=== PATIENT | male | born 1950 | race Caucasian/White ===

== ENCOUNTER 2022-10-13 13:46 | Emergency (ER) | payer OTHER ==
--- OUTSIDE RECORDS SUMMARY | 2022-10-13 13:52 | XMS REPORT | Continuity of Care Document ---
:1950 Author Organization [facility] t Address [address] [place] [address] Dr. Fisher [address] [place] [id number] Care Team Providers Name Role Phone Jacek Moffett Attending Clinician Unavailable ROSEANNE Attending Clinician Unavailable Pinky Attending Clinician Unavailable ROSEANNE Admitting Clinician Unavailable Pinky Admitting Clinician Unavailable Payers Payer Name Policy Type Policy Number Effective Date Expiration Date Georges davenport [facility] [id number] 2021 00:00:00 [employer] (MEDICARE [id number] REPLACEMENT/ADVANTA GE - PPO) [employer] (PPO) [id number] Problems Condition Condition Condition Status Onset Resolution Last Treating Co mments Source Name Details Category Date Date Treatment Clinician Date 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 -16 Communi 00:00: ty 00 [facility] Hyperchole Hyperchole Problem Active 2020-0 S [facility]y sterolemia sterolemia 16 Co mmuni 00:00: ty 00 [facility] Bilateral Bilateral Problem Active 2020-0 Swe finn tinnitus Tinnitus 16 Commun i 00:00: ty 00 [facility] Hypertensi Hypertensi Problem Active 2020-0 S weeny ve heart ve Heart 16 Commun i disease Disease 00:00: ty without without 00 Hospita congestive Congestive l heart Heart Clinics failure Failure Mitral Mitral Problem Active 2020-0 [facility] valve Valve 16 Communi prolapse Prolapse 00:00: ty 00 Hospita l Clinics 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: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 Complex 00 Hospita l Clinics Nasal Nasal Problem Active 2020-0 [facility] infection Infection 7-16 Comm uni 00:00: ty 00 Hospita l Clinics Umbilical Umbilical Problem Active 2020-0 [facility] hernia Hernia -16 Communi 00:00: ty 00 [facility] Primary Primary Problem Active [facility] erectile Erectile 7-16 Commun i dysfunctio Dysfunctio 00:00: ty n n 00 [facility] History of History of Problem Active S weeny actinic Actinic 7-16 Communi keratosis Keratosis 00:00: ty 00 [facility] Lower Lower Problem Active [facility] urinary Urinary 7-16 Communi tract Tract 00:00: ty symptoms Symptoms 00 Hospit a due to Due to l benign Benign Clinics prostatic Prostatic hypertroph Hypertroph y y Cyst Cyst Problem Active [facility] 4-16 Communi 00:00: ty 00 [facility] Hypertensi Hypertensi Problem Active S weeny ve ve 4-14 Communi disorder Disorder 00:00: ty 00 [facility] Allergies, Adverse Reactions, Alerts Allergy Allergy Status Severity Reaction(s) Onset Inactive Treating Comm ents Source Name Type Date Date Clinician Meloxica Allergy Active [facility] m to Communi substanc ty e [facility] Nitrogly Allergy Active Moderate Dizziness Sw eeny cerin to to severe Communi substanc ty e [facility] Social History Smoking Status Start Date Stop Date Source Never Smoker [facility] Medications Ordered Filled Start Stop Current Ordering Indication Dosage Frequency Signature Comments Components Source Medication Medication Date Date Medication? Clinician (SIG) Name Name A/B/C/D-E A/B/C/D-E No A/B/C/D-E [facility] Vitamins Vitamins Vitamins Com nj ty [facility] amlodipine amlodipine No amlodipine [facility] 5 5 5 Communi mg-olmesart mg-olmesart mg-olmesar ty an 40 mg an 40 mg [place] 40 mg Ho spita tablet tablet tablet l Clinics mupirocin 2 mupirocin 2 No mupirocin [facility] % topical % topical 2 % Commu ni ointment ointment topical ty APPLY A APPLY A ointment Hospi ta SMALL SMALL APPLY A l AMOUNT TO AMOUNT TO SMALL Clin ics THE THE AMOUNT TO AFFECTED AFFECTED THE AREA BY AREA BY AFFECTED TOPICAL TOPICAL AREA BY ROUTE 3 ROUTE 3 TOPICAL TIMES PER TIMES PER ROUTE 3 DAY DAY TIMES PER DAY A/B/C/D-E A/B/C/D-E No A/B/C/D-E [facility] Vitamins Vitamins Vitamins Com nj [facility] amlodipine amlodipine No amlodipine [facility] 5 5 5 Communi mg-olmesart mg-olmesart mg-olmesar ty an 20 mg an 20 mg [place] 20 mg [facility]ita tablet 1 tablet 1 tablet 1 l tablet qDay tablet qDay tablet Clinics qDay mupirocin 2 mupirocin 2 No mupirocin [facility] % topical % topical 2 % Commu ni ointment ointment topical ty APPLY A APPLY A ointment Hospi ta SMALL SMALL APPLY A l AMOUNT TO AMOUNT TO SMALL Clin ics THE THE AMOUNT TO AFFECTED AFFECTED THE AREA BY AREA BY AFFECTED TOPICAL TOPICAL AREA BY ROUTE 3 ROUTE 3 TOPICAL TIMES PER TIMES PER ROUTE 3 DAY DAY TIMES PER DAY A/B/C/D-E A/B/C/D-E No A/B/C/D-E [facility] Vitamins Vitamins Vitamins Com [facility] amlodipine amlodipine No amlodipine [facility] 5 5 5 Communi mg-olmesart mg-olmesart mg-olmesar ty an 20 mg an 20 mg [place] 20 mg Ho spita tablet TAKE tablet TAKE tablet l 1 TABLET BY 1 TABLET BY TAKE 1 Clinics MOUTH EVERY MOUTH EVERY TABLET BY DAY DAY MOUTH EVERY DAY mupirocin 2 mupirocin 2 No mupirocin [facility] % topical % topical 2 % Commu ni ointment ointment topical ty APPLY A APPLY A ointment Hospi ta SMALL SMALL APPLY A l AMOUNT TO AMOUNT TO SMALL Clin ics THE THE AMOUNT TO AFFECTED AFFECTED THE AREA BY AREA BY AFFECTED TOPICAL TOPICAL AREA BY ROUTE 3 ROUTE 3 TOPICAL TIMES PER TIMES PER ROUTE 3 DAY DAY TIMES PER DAY A/B/C/D-E A/B/C/D-E No A/B/C/D-E [facility] Vitamins Vitamins Vitamins Com [facility] amlodipine amlodipine No amlodipine [facility] 5 5 5 Communi mg-olmesart mg-olmesart mg-olmesar ty an 20 mg an 20 mg [place] 20 mg [facility] spita tablet TAKE tablet TAKE tablet l 1 TABLET BY 1 TABLET BY TAKE 1 Clinics MOUTH EVERY MOUTH EVERY TABLET BY DAY DAY MOUTH EVERY DAY mupirocin 2 mupirocin 2 No mupirocin [facility] % topical % topical 2 % Commu ni ointment ointment topical ty APPLY A APPLY A ointment Hospi ta SMALL SMALL APPLY A l AMOUNT TO AMOUNT TO SMALL Clin ics THE THE AMOUNT TO AFFECTED AFFECTED THE AREA BY AREA BY AFFECTED TOPICAL TOPICAL AREA BY ROUTE 3 ROUTE 3 TOPICAL TIMES PER TIMES PER ROUTE 3 DAY DAY TIMES PER DAY A/B/C/D-E A/B/C/D-E No A/B/C/D-E [facility] Vitamins Vitamins Vitamins Com nj ty [facility] amlodipine amlodipine No amlodipine [facility] 5 5 5 Communi mg-olmesart mg-olmesart mg-olmesar ty an 20 mg an 20 mg [place] 20 mg [facility] tablet TAKE tablet TAKE tablet l 1 TABLET BY 1 TABLET BY TAKE 1 Clinics MOUTH EVERY MOUTH EVERY TABLET BY DAY DAY MOUTH EVERY DAY flaxseed flaxseed No flaxseed Swe finn daily daily daily Communi ty [facility] fluticasone fluticasone No fluticason [facility] propionate propionate e Com nj 50 50 propionate ty mcg/actuati mcg/actuati 50 H ospita on nasal on nasal mcg/actuat l spray,suspe spray,suspe ion nasal Clinics nsion nsion spray,susp INSTILL 1 INSTILL 1 ension SPRAY IN SPRAY IN INSTILL 1 EACH EACH SPRAY IN NOSTRIL NOSTRIL EACH ONCE A DAY ONCE A DAY NOSTRIL ONCE A DAY mupirocin 2 mupirocin 2 No mupirocin [facility] % topical % topical 2 % Commu ni ointment ointment topical ty APPLY A APPLY A ointment Hospi ta SMALL SMALL APPLY A l AMOUNT TO AMOUNT TO SMALL Clin ics THE THE AMOUNT TO AFFECTED AFFECTED THE AREA BY AREA BY AFFECTED TOPICAL TOPICAL AREA BY ROUTE 3 ROUTE 3 TOPICAL TIMES PER TIMES PER ROUTE 3 DAY DAY TIMES PER DAY A/B/C/D-E A/B/C/D-E No A/B/C/D-E [facility] Vitamins Vitamins Vitamins Com nj ty [facility] amlodipine amlodipine No amlodipine [facility] 5 5 5 Communi mg-olmesart mg-[place]mesart mg-olmesar ty an 20 mg an 20 mg [place] 20 mg [facility] spita tablet TAKE tablet TAKE tablet l 1 TABLET BY 1 TABLET BY TAKE 1 Clinics MOUTH EVERY MOUTH EVERY TABLET BY DAY DAY MOUTH EVERY DAY Fluzone Fluzone No Fluzone [facility] High-Dose High-Dose High-Dose Communi ty (PF) 180 (PF) 180 (PF) 180 Hos rebecca mcg/0.5 mL mcg/0.5 mL mcg/0.5 mL l intramuscul intramuscul intramuscu Clinics ar syringe ar syringe lar syringe mupirocin 2 mupirocin 2 No mupirocin [facility] % topical % topical 2 % Commu ni ointment ointment topical ty APPLY A APPLY A ointment Hospi ta SMALL SMALL APPLY A l AMOUNT TO AMOUNT TO SMALL Clin ics THE THE AMOUNT TO AFFECTED AFFECTED THE AREA BY AREA BY AFFECTED TOPICAL TOPICAL AREA BY ROUTE 3 ROUTE 3 TOPICAL TIMES PER TIMES PER ROUTE 3 DAY DAY TIMES PER DAY sildenafil sildenafil No 1 Q1D sildenafil [facility] 100 mg 100 mg 100 mg Communi tablet Take tablet Take tablet ty 1 tablet 1 tablet Take 1 Hospi ta every day every day tablet l by oral by oral every day Clin ics route. route. by oral route. tadalafil tadalafil No tadalafil [facility] 10 mg 10 mg 10 mg Communi tablet TAKE tablet TAKE tablet ty 1 TABLET BY 1 [facility]TH EVERY TABLET BY l DAY DAY MOUTH Clinics EVERY DAY A/B/C/D-E A/B/C/D-E No A/B/C/D-E [facility] Vitamins Vitamins Vitamins Com nj ty Hospita l Clinics amlodipine amlodipine No amlodipine [facility] 5 5 5 Communi mg-[place]mesart mg-olmesart mg-olmesar ty an 20 mg an 20 mg [place] 20 mg [facility] spita tablet TAKE tablet TAKE tablet l 1 TABLET BY 1 TABLET BY TAKE 1 [facility] MOUTH EVERY MOUTH EVERY TABLET BY DAY DAY MOUTH EVERY DAY fluticasone fluticasone No 1spray( Q1D fluticason [facility] propionate propionate s) e Com nj 50 50 propionate ty mcg/actuati mcg/actuati 50 H ospita on nasal on nasal mcg/actuat l spray,suspe spray,suspe ion nasal Clinics nsion [place] nsion [place] spray,susp 1 spray 1 spray ension every day every day [place] 1 by by spray intranasal intranasal every day route. route. by intranasal route. Fluzone Fluzone No Fluzone [facility] High-Dose High-Dose High-Dose Communi ty (PF) 180 (PF) 180 (PF) 180 Hos rebecca mcg/0.5 mL mcg/0.5 mL mcg/0.5 mL l intramuscul intramuscul intramuscu Clinics ar syringe ar syringe lar syringe hydroxychlo hydroxychlo No hydroxychl [facility] roquine 200 roquine 200 oroquine Communi mg tablet mg tablet 200 mg ty TAKE 1 TAKE 1 tablet Hospita TABLET BY TABLET BY TAKE 1 l MOUTH ONCE MOUTH ONCE TABLET BY Clinics DAILY FOR 5 DAILY FOR 5 MOUTH ONCE DAYS THEN DAYS THEN DAILY FOR TAKE 1 TAKE 1 5 DAYS TABLET BY TABLET BY THEN TAKE MOUTH MOUTH 1 TABLET WEEKLY WEEKLY BY MOUTH THEREAFTER THEREAFTER WEEKLY THEREAFTER mupirocin 2 mupirocin 2 No mupirocin [facility] % topical % topical 2 % Commu ni ointment ointment topical ty APPLY A APPLY A ointment Hospi ta SMALL SMALL APPLY A l AMOUNT TO AMOUNT TO SMALL Clin ics THE THE AMOUNT TO AFFECTED AFFECTED THE AREA BY AREA BY AFFECTED TOPICAL TOPICAL AREA BY ROUTE 3 ROUTE 3 TOPICAL TIMES PER TIMES PER ROUTE 3 DAY DAY TIMES PER DAY sildenafil sildenafil No sildenafil [facility] 100 mg 100 mg 100 mg Communi tablet TAKE tablet TAKE tablet ty 1 TABLET BY 1 TABLET BY TAKE 1 Hospita MOUTH EVERY MOUTH EVERY TABLET BY l DAY DAY MOUTH Clinics EVERY DAY zinc zinc No zinc [facility] sulfate 50 sulfate 50 sulfate 50 Communi mg zinc mg zinc mg zinc ty (220 mg) (220 mg) (220 mg) Hos rebecca capsule capsule capsule l TAKE ONE TAKE ONE TAKE ONE Cli nics CAPSULE BY CAPSULE BY CAPSULE BY MOUTH ONCE MOUTH ONCE MOUTH ONCE A DAY A DAY A DAY Immunizations Ordered Immunization Filled Immunization Date Status Commen ts Source Name Name influenza, influenza, 2019-08-02 Completed [facility] Communi ty injectable, injectable, 00:00:00 Hospital Cli [facility]ics quadrivalent quadrivalent influenza, influenza, 2019-08-02 Completed [facility] Communi ty injectable, injectable, 00:00:00 [facility] Cli nics quadrivalent quadrivalent influenza, influenza, 2019-08-02 Completed [facility] Communi ty injectable, injectable, 00:00:00 Hospital Cli nics quadrivalent quadrivalent influenza, influenza, 2019-08-02 Completed [facility] Communi ty injectable, injectable, 00:00:00 Hospital Cli nics quadrivalent quadrivalent influenza, influenza, 2019-08-02 Completed [facility] Communi ty injectable, injectable, 00:00:00 Hospital Cli nics quadrivalent quadrivalent influenza, influenza, 2019-08-02 Completed [facility] Communi ty injectable, injectable, 00:00:00 Hospital Cli nics quadrivalent quadrivalent influenza, influenza, 2019-08-02 Completed [facility] Communi ty injectable, injectable, 00:00:00 Hospital Cli nics quadrivalent quadrivalent Vital Signs Vital Name Observation Time Observation Value Comments Source BP Diastolic 2022-06-24 00:00:00 82 mm[Hg] [facility] Height 2022-06-24 00:00:00 70 [in_i] [facility] BMI (Body Mass 2022-06-24 00:00:00 23.1 kg/m2 [facility]) [facility] BP Systolic 2022-06-24 00:00:00 136 mm[Hg] [facility] Body Weight 2022-06-24 00:00:00 2576 [oz_av] [facility] BP Diastolic 2022-03-27 00:00:00 84 mm[Hg] [facility] Height 2022-03-27 00:00:00 70 [in_i] [facility] s BMI (Body Mass 2022-03-27 00:00:00 23.7 kg/m2 [facility]) [facility] BP Systolic 2022-03-27 00:00:00 144 mm[Hg] [facility] Body Weight 2022-03-27 00:00:00 2640 [oz_av] [facility] BP Diastolic 2022-01-09 00:00:00 80 mm[Hg] [facility] Height 2022-01-09 00:00:00 70 [in_i] [facility] BMI (Body Mass 2022-01-09 00:00:00 24 kg/m2 [facility] BP Systolic 2022-01-09 00:00:00 120 mm[Hg] [facility] Body Weight 2022-01-09 00:00:00 2680 [oz_av] [facility] BP Diastolic 2021-12-24 00:00:00 70 mm[Hg] [facility] Height 2021-12-24 00:00:00 70 [in_i] [facility] BP Systolic 2021-12-24 00:00:00 142 mm[Hg] [facility] BP Diastolic 2021-06-20 00:00:00 70 mm[Hg] [facility] Height 2021-06-20 00:00:00 70 [in_i] [facility] BMI (Body Mass 2021-06-20 00:00:00 23.6 kg/m2 [facility] BP Systolic 2021-06-20 00:00:00 122 mm[Hg] [facility] Body Weight 2021-06-20 00:00:00 2632 [oz_av] [facility] BP Diastolic 2021-05-09 00:00:00 72 mm[Hg] [facility] Height 2021-05-09 00:00:00 70 [in_i] [facility] BMI (Body Mass 2021-05-09 00:00:00 23 kg/m2 [facility] BP Systolic 2021-05-09 00:00:00 118 mm[Hg] [facility] Body Weight 2021-05-09 00:00:00 2560 [oz_av] [facility] Procedures Procedure Date / Time Performed Performing Clinician Daniel e Osteoplasty of Frontal [facility] Sinus [facility] Vasectomy [facility] Inject Trigger [facility] Finger/thumb [facility] Release of Trigger Count includes the [facility] Sinus Surgery [facility] Hernia Repair [facility] Plan of Care Planned Activity Planned Date Details Comments Source Diagnostic Test 2021-05-09 testosterone, [facility] Comm unity Pending 00:00:00 total, serum Hospital Clinic s [code = testosterone, total, serum] Diagnostic Test 2021-05-09 testosterone, [facility] Comm unity Pending 00:00:00 free, serum [code Hospital C linics = testosterone, free, serum] Diagnostic Test 2021-05-09 estrogen, total, [facility] C ommunity Pending 00:00:00 serum [code = Hospital Clini cs estrogen, total, serum] Diagnostic Test 2021-05-09 CMP, serum or [facility] Comm unity Pending 00:00:00 plasma [code = Hospital Clin ics CMP, serum or plasma] Diagnostic Test 2021-05-09 CBC w/ auto diff [facility] C ommunity Pending 00:00:00 [code = CBC w/ Hospital Clin ics auto diff] Diagnostic Test 2021-05-09 lipid panel, [facility] Commu nity Pending 00:00:00 serum [code = Hospital Clini cs lipid panel, serum] Diagnostic Test 2021-05-09 PSA, serum or [facility] Comm unity Pending 00:00:00 plasma [code = Hospital Clin ics PSA, serum or plasma] Future Appointment 2022-12-22 Liza Rucker [facility] 00:00:00 [address]; [facility] [address] [place] [address] Encounters Start End Encounter Admission Attending Care Care Encounter Source Date/Time Date/Time Type Type Clinicians Facility Department ID 2021-11-13 Outpatient ANITHA Moffett [facility] [id number] Common 11:19:55 Jacek Serrato30 [facility] 2021-11-[address] MiguelitoKEYA [facility] [id number] Common 11:19:50 Jacek Serrato29 [facility] 2022-06-24 2022-06-24 Outpatient ROSEANNE [facility] [id number] [facility] 00:00:00 00:00:00 906 Commun i ty Hospita [facility] 2022-06-24 2022-06-24 Jacek [facility] [place] - [facility] 00:00:00 00:00:00 [facility] - ty DO: [address] Hospit a [facility], [facility], [place] CLINIC, [address] MIGUELITO , Ph. [phone] 2022-06-24 2022-06-24 Outpatient Miguelito [facility] [id number] 00:00:00 00:00:00 Jacek [id number] Naren [id number] 2022-03-27 2022-03-27 Outpatient ERICKSON_R [facility] [id number] [facility] 04:23:00 04:23:00 609 Commun i ty Hospita l Clinics 2022-03-27 2022-03-27 Jacek [facility] [place] - [facility] 00:00:00 00:00:00 [facility] ty DO: [address] Hospit a [facility], [place], [place] CLINIC, [address] MIGUELITO , Ph. [phone] 2022-03-27 2022-03-27 Outpatient Miguelito [facility] [id number] 00:00:00 00:00:00 Jacek [id number] Naren [id number] 2022-03-27 2022-03-27 Outpatient Miguelito [facility] [id number] 00:00:00 00:00:00 Jacek [id number] Naren [id number] 2022-01-09 2022-01-09 Outpatient ERMELANYON_R [facility] [id number] [facility] 05:00:00 05:00:00 324 Commun i ty Hospita l Clinics 2022-01-09 2022-01-09 Jacek [facility] [place] - [facility] Esko 00:00:00 00:00:00 [facility] - ty DO: [address] Hospit a [facility], [facility], [place] CLINIC, [address] MIGUELITO , Ph. [phone] 2022-01-09 2022-01-09 Outpatient Miguelito [facility] [id number] 00:00:00 00:00:00 Jacek [id number] Naren [id number] 2021-12-24 Outpatient ERICKSON_R [facility] [id number] - [facility] 09:59:00 09:59:00 308 Commun i ty Hospita l Clinics 2021-12-24 2021-12-24 Jacek [facility] [place] - [facility] 00:00:00 00:00:00 Naren [facility] DO: [address] Hospit a [facility], [place], [place] CLINIC, [address] MIGUELITO , Ph. 2021-12-24 2021-12-24 Outpatient Miguelito [facility] [id number] 00:00:00 00:00:00 Jacek [id number] Naren [id number] 2021-12-23 2021-12-23 Outpatient ERICKSON_R [facility] [id number] - [facility] 07:10:00 07:10:00 307 Commun i ty Hospita l Clinics 2021-10-22 2021-10-22 Outpatient ERICKSON_R [facility] [id number] - [facility] 04:46:00 04:46:00 104 Commun i ty Hospita l Clinics 2021-06-20 2021-06-20 Outpatient ERICKSON_R [facility] [id number] - [facility] 05:50:00 05:50:00 902 Commun i ty Hospita l Clinics 2021-06-20 2021-06-20 Outpatient Miguelito [facility] [id number] 00:00:00 00:00:00 Jacek [id number] Naren [id number] 2021-06-20 2021-06-20 Jacek [facility] [place] - [facility] 00:00:00 00:00:00 [facility] DO: [address] Hospit a [facility], [place], [place] CLINIC, [address] MIGUELITO , Ph. 2021-05-09 2021-05-09 Outpatient ERICKSON_R [facility] [id number] [facility] 09:21:00 09:21:00 722 Commun i ty Hospita l Clinics 2021-05-09 2021-05-09 Outpatient Miguelito [facility] [id number] 00:00:00 00:00:00 Jacek [id number] Naren [id number] 2021-05-09 2021-05-09 Jacek [facility] [place] - [facility] 00:00:00 00:00:00 [facility] DO: [address] Hospit a [facility], [facility], [address] MIGUELITO , Ph. 2021-05-03 2021-05-03 Outpatient ERICKSON_R [facility] [id number] [facility] 04:50:00 04:50:00 716 Commun i ty Hospita l Clinics 2021-02-20 2021-02-20 Outpatient Raju_P [id number] [place] 12:08:00 12:08:00 [id number] 2020-09-07 2020-09-07 Outpatient ERICKSON_R [facility] [id number] [facility] 02:17:00 02:17:00 316 Commun i ty Hospita l Clinics Results This patient has no known results.
[2022-10-13 15:29] LABS: Urine Blood 2+ (Negative); Urine Glucose Negative (Negative); Urine Protein 1+ (Negative); Urine Specific Gravity >=1.030 (1.005-1.030)
[2022-10-13 16:00] LABS: Absolute Lymphocytes (CBC) 1.2 K/uL (0.7-4.9); Hematocrit 45.7 % (39.6-49.0); MCV 84.4 fL (80-100); RBC Red Blood Cell Count 5.41 M/uL (4.33-5.43)
[2022-10-13 16:29] LABS: Albumin 4.1 g/dL (3.4-5.0); Bilirubin Total 0.8 mg/dL (0.2-1.0); Potassium 4.3 mmol/L (3.5-5.1); Protein, Total 7.3 g/dL (6.4-8.2)
--- NOTE | 2022-10-13 17:10 | RAD REPORT ---
EXAM DESCRIPTION: CTAbdomen Pelvis Wo Contrast - 10/13/2022 4:55 pm CLINICAL HISTORY: LLQ pain COMPARISON: No comparisons TECHNIQUE: CT of the abdomen and pelvis was performed without contrast. All CT scans are performed using dose optimization technique as appropriate and may include automated exposure control or mA/KV adjustment according to patient size. FINDINGS: Lower chest: No acute abnormality. Liver: No acute abnormality or suspicious lesions. Biliary: No biliary ductal dilatation. Stomach: No significant focal abnormality. Duodenum: No significant focal abnormality. Pancreas: No significant abnormality. Spleen: No significant abnormality. Adrenal: No suspicious lesions. Kidney/ureter: Mild left-sided hydroureteronephrosis secondary to a 3 mm stone at the left UVJ. Punct ate stone in the right kidney. Retroperitoneum: No retroperitoneal adenopathy. Vascular: No aneurysm. Bowel: No significant focal abnormality. Normal appendix. Peritoneum: No ascites or free air. Bladder: Grossly unremarkable. Reproductive: No adnexal masses. Prostatic calcifications. Bones: No acute fracture. Other: n/a IMPRESSION: Mild left-sided hydroureteronephrosis secondary to a 3 millimeter stone at the left UVJ.
[2022-10-13] MEDS ORDERED: TAMSULOSIN 0.4 MG SR CAP ONE (18:09)
[2022-10-13] MEDS ORDERED: MAGNESIUM SULFATE 1 gm IVPB 1 GM/100 ML BAG IV ONE (18:09)
[2022-10-13] MEDS ORDERED: NA CHLORIDE 0.9% 1,000 ML ONE (18:10)
[2022-10-13 18:37] LABS: Calcium Oxalate Crystals- Ur Many /HPF (None Seen); Urine Bacteria None Seen /HPF (<20); Urine Crystals Unidentified Few /HPF (None Seen); Urine Mucus Slight /HPF (None Seen); Urine RBC >50 /HPF (None Seen)
--- NOTE | 2022-10-13 18:41 | ER ---
Nurse's Notes [facility] Name: Alphonse Graham Age: 72 yrs Sex: Male : 1950 Arrival Date: 10/13/2022 Time: 13:51 Bed DIS1 Private MD: Diagnosis: Calculus of ureter;Unspecified hydronephrosis Presentation: 10/13 14:14 Chief complaint: Patient states: Episodes of lower abdominal pain over the past week. ld1 C/O LLQ pain/groin pain - radiates to left flank pain. Coronavirus screen: At this time, the client does not indicate any symptoms associated with coronavirus-19. Ebola Screen: No symptoms or risks identified at this time. Initial Sepsis Screen: Does the patient meet any 2 criteria? No. Patient's initial sepsis screen is negative. Does the patient have a suspected source of infection? No. Patient's initial sepsis screen is negative. Risk Assessment: Do you want to hurt yourself or someone else? Patient reports no desire to harm self or others. Onset of symptoms was October 13, 2022. 14:14 Method Of Arrival: Ambulatory ld1 14:14 Acuity: MENDEZ 3 ld1 Triage Assessment: 14:15 General: Appears in no apparent distress. comfortable, Behavior is calm, cooperative, ld1 appropriate for age. Pain: Complains of pain in left lower quadrant Pain does not radiate. Pain currently is 6 out of 10 on a pain scale. Quality of pain is described as throbbing, Pain began suddenly, Is intermittent. EENT: No signs and/or symptoms were reported regarding the EENT system. Neuro: Level of Consciousness is awake, alert, obeys commands, Oriented to person, place, time, situation. Cardiovascular: Capillary refill < 3 seconds Patient's skin is warm and dry. Respiratory: Airway is patent Respiratory effort is even, unlabored. GI: Abdomen is flat, non-distended, Reports lower abdominal pain. : No signs and/or symptoms were reported regarding the genitourinary system. Derm: No signs and/or symptoms reported regarding the dermatologic system. Historical: - Allergies: 14:15 Nitroglycerin; ld1 - PMHx: 14:15 Hypertensive disorder; ld1 - PSHx: 14:15 Hernia repair X 4; ld1 - Immunization history:: Adult Immunizations up to date, Client reports receiving the 2nd dose of the Covid vaccine. - Social history:: Smoking status: Patient reports the use of cigarette tobacco products, Patient/guardian denies using alcohol. Vital Signs: 14:14 Pulse 100; Resp 18; Temp 98.6(O); Pulse Ox 100% on R/A; Weight 77.11 kg; Height 5 ft. ld1 10 in. (177.80 cm); Pain 8/10; 14:17 BP 176 / 96; ld1 19:05 BP 151 / 78; Pulse 95; Resp 15; Pulse Ox 100% ; jl7 14:14 Body Mass Index 24.39 (77.11 kg, 177.80 cm) ld1 ED Course: 13:51 Patient arrived in ED. rg4 13:51 Debora Holland FNP-C is PHCP. kb 13:51 Mark Santiago MD is Attending Physician. kb 14:15 Triage completed. ld1 14:15 Arm band placed on right wrist. ld1 15:36 Inserted saline lock: 20 gauge in right antecubital area, using aseptic technique. zm Blood collected. 15:36 CBC with Diff Sent. zm 15:36 CMP Sent. zm 15:36 Lipase Sent. zm 16:57 Abdomen In Process Unspecified. EDMS 18:39 Francis Daigle MD is Referral Physician. kb Administered Medications: 18:13 Drug: NS 0.9% 1000 ml Route: IV; Rate: 1 bolus; Site: right antecubital; ld1 18:13 Drug: Magnesium Sulfate 1 grams Route: IVPB; Infused Over: 1 hrs; Site: right ld1 antecubital; 18:13 Drug: Flomax (tamsulosin) 0.4 mg Route: PO; ld1 Outcome: 18:40 Discharge ordered by . kb 19:05 Patient left the ED. jl7 Signatures: Dispatcher [employer] EDMS Debora Holland FNP-C FNP-Ckb Garcia, Rubi rg4 [place]ano Nguyen, RN RN jl7 Carly Amos RN RN ld1 Jade Harvey
--- NOTE | 2022-10-13 18:41 | EDPHYS ---
Physician Documentation [facility] Name: Alphonse Graham Age: 72 yrs Sex: Male : 1950 Arrival Date: 10/13/2022 Time: 13:51 Bed DIS1 Private MD: ED Physician Mark Santiago HPI: 10/13 15:48 This 72 yrs old Male presents to ER via Ambulatory with complaints of Abdominal Pain. kb 15:48 The patient presents with abdominal pain in the left lower quadrant. Onset: The kb symptoms/episode began/occurred 1 week(s) ago. The symptoms radiate to left back. Associated signs and symptoms: none. The symptoms are described as intermittent. Modifying factors: The symptoms are alleviated by nothing, the symptoms are aggravated by nothing. Severity of pain: At its worst the pain was moderate in the emergency department the pain is unchanged. The patient has experienced similar episodes in the past, a few times. The patient has not recently seen a physician. Pt reports history of hernia repairs to both groins. States he started having intermittent pain to LLQ/left groin one week ago. Reports bulging at times. Today pain started to wrap around to back. Historical: - Allergies: 14:15 Nitroglycerin; ld1 - PMHx: 14:15 Hypertensive disorder; ld1 - PSHx: 14:15 Hernia repair X 4; ld1 - Immunization history:: Adult Immunizations up to date, Client reports receiving the 2nd dose of the Covid vaccine. - Social history:: Smoking status: Patient reports the use of cigarette tobacco products, Patient/guardian denies using alcohol. ROS: 15:48 Constitutional: Negative for fever, chills, and weight loss. kb 15:48 Abdomen/GI: Positive for abdominal pain, Negative for nausea, vomiting, and diarrhea. 15:48 All other systems are negative. Exam: 15:48 Constitutional: This is a well developed, well nourished patient who is awake, alert, kb and in no acute distress. Head/Face: Normocephalic, atraumatic. ENT: Moist Mucous membranes Cardiovascular: Regular rate and rhythm with a normal S1 and S2. No gallops, murmurs, or rubs. No pulse deficits. Respiratory: Respirations even and unlabored. No increased work of breathing. Talking in full sentences Abdomen/GI: Soft, non-tender. No distention Skin: Warm, dry with normal turgor. Normal color. MS/ Extremity: Pulses equal, no cyanosis. Neurovascular intact. Full, normal range of motion. Neuro: Awake and alert, GCS 15, oriented to person, place, time, and situation. Moves all extremities. Normal gait. Psych: Awake, alert, with orientation to person, place and time. Behavior, mood, and affect are within normal limits. Vital Signs: 14:14 Pulse 100; Resp 18; Temp 98.6(O); Pulse Ox 100% on R/A; Weight 77.11 kg; Height 5 ft. ld1 10 in. (177.80 cm); Pain 8/10; 14:17 BP 176 / 96; ld1 19:05 BP 151 / 78; Pulse 95; Resp 15; Pulse Ox 100% ; jl7 14:14 Body Mass Index 24.39 (77.11 kg, 177.80 cm) ld1 MDM: 14:12 Patient medically screened. kb 15:48 Data reviewed: vital signs, nurses notes. Data interpreted: Pulse oximetry: on room air kb is 100 %. Interpretation: normal. 18:39 Counseling: I had a detailed discussion with the patient and/or guardian regarding: the kb historical points, exam findings, and any diagnostic results supporting the discharge/admit diagnosis, lab results, radiology results, the need for outpatient follow up, a urologist, to return to the emergency department if symptoms worsen or persist or if there are any questions or concerns that arise at home. ED course: Pt reports he is painfree at this time. . 10/13 14:17 Order name: CBC with Diff; Complete Time: 16:04 kb 10/13 14:17 Order name: CMP; Complete Time: 16:31 kb 10/13 14:17 Order name: Lipase; Complete Time: 16:31 kb 10/13 15:30 Order name: Urine Dipstick-Ancillary; Complete Time: 15:31 EDMS 10/13 17:14 Order name: Urine Microscopic Only; Complete Time: 18:39 kb 10/13 14:17 Order name: IV Saline Lock; Complete Time: 15:36 kb 10/13 14:17 Order name: Labs collected and sent; Complete Time: 15:36 kb 10/13 14:17 Order name: Urine Dipstick-Ancillary (obtain specimen); Complete Time: 15:36 kb 10/13 16:42 Order name: Abdomen ; Complete Time: 17:14 EDMS Administered Medications: 18:13 Drug: NS 0.9% 1000 ml Route: IV; Rate: 1 bolus; Site: right antecubital; ld1 18:13 Drug: Magnesium Sulfate 1 grams Route: IVPB; Infused Over: 1 hrs; Site: right ld1 antecubital; 18:13 Drug: Flomax (tamsulosin) 0.4 mg Route: PO; ld1 Disposition Summary: 10/13/22 18:40 Discharge Ordered Location: Home kb Condition: Stable kb Diagnosis - Calculus of ureter kb - Unspecified hydronephrosis kb Followup: kb - With: Francis Daigle MD - When: 2 - 3 days - Reason: Recheck today's complaints Followup: kb - With: Emergency Department - When: As needed - Reason: Worsening of condition Discharge Instructions: - Discharge Summary Sheet kb - Kidney Stones, [id number] kb - Dietary Guidelines to Help Prevent Kidney Stones kb Forms: - Medication Reconciliation Form kb - Thank You Letter kb - Antibiotic Education kb - Prescription Opioid Use kb Prescriptions: - Flomax 0.4 mg Oral capsule - take 1 capsule by ORAL route once daily 1/2 hour following the same meal each kb day; 10 capsule; Refills: 0, Product Selection Permitted - Zofran 4 mg Oral Tablet - take 1 tablet by ORAL route every 6 hours As needed; 20 tablet; Refills: 0, kb Product Selection Permitted - Tramadol 50 mg Oral Tablet - take 1 tablet by ORAL route every 8 hours as needed; 12 tablet; Refills: 0, kb Product Selection Permitted Signatures: Dispatcher [employer] EDDebora Alfredo, MOLDER PUNCH-C MOLDER PUNCH-Carly Chacko, RN RN ld1 Corrections: (The following items were deleted from the chart) 16:42 14:21 Abdomen Pelvis W [id number] ordered. EDMS EDMS
[2022-10-13 19:14] VITALS: TEMP 98.6; O2SAT 100
[2022-10-13 19:30] VITALS: BP 151/78
== END 2022-10-13 19:05 | disposition home or self-care (01) ==
LOC: ER 13:46
DX: N13.2 Hydronephrosis with renal and ureteral calculous obstruction (principal); I10 Essential (primary) hypertension; Z72.0 Tobacco use
CPT/HCPCS: 85025; 36415; 83690; 80053; 74176; J3475; J7030; 81003; 81015; 96374; 99284